=== PATIENT | male | born 1990 | race Caucasian/White ===

== ENCOUNTER 2016-04-22 18:57 | Observation (INO) | payer OTHER ==
[~2016-04-22] VITALS: Wt 82.0 kg
[2016-04-22] MEDS ORDERED: morphine 4 MG/ML VIAL IV STA (22:52)
[2016-04-22] MEDS ORDERED: SOD CHLORIDE 0.9% 1,000 ML IV STA (22:52)
[2016-04-22] MEDS ORDERED: ONDANSETRON 4 MG INJ IV STA (22:52)
[2016-04-22] MEDS ORDERED: FEXO1TAB25 PO (22:57)
[2016-04-22 23:19] LABS: BASOPHIL # 0.1 10^3/ul (0.0-0.1); BASOPHILS % 0.6 % (0.0-2.0); EOSINOPHILS # 0.1 10^3/ul (0.0-0.5); EOSINOPHILS % 0.9 % (0.0-7.0); HEMATOCRIT 44.1 % (42.0-52.0); HEMOGLOBIN 14.9 g/dl (14.0-18.0); LYMPHOCYTES # 3.8 10^3/ul (0.8-2.9); LYMPHOCYTES % 28.3 % (15.0-51.0); MEAN CORPUSCULAR HEMOGLOBIN 30.7 pg (29.0-33.0); MEAN CORPUSCULAR HGB CONC 33.7 g/dl (32.0-37.0); MEAN CORPUSCULAR VOLUME 90.9 fl (82.0-101.0); MEAN PLATELET VOLUME 8.5 fl (7.4-10.4); MONOCYTE # 1.1 10^3/ul (0.3-0.9); MONOCYTES % 7.8 % (0.0-11.0); NEUTROPHIL # 8.5 10^3/ul (1.6-7.5); NEUTROPHILS % 62.4 % (39.0-77.0); PLATELET COUNT 313 10^3/UL (140-440); RED BLOOD COUNT 4.85 10^6/ul (4.70-6.10); RED CELL DISTRIBUTION WIDTH 13.2 % (11.5-14.5); UNCORRECTED WBC 13.6 10^3/ul (4.8-10.8); WHITE BLOOD COUNT 13.6 10^3/ul (4.8-10.8)
[2016-04-22 23:20] LABS: CONDITION 1
[2016-04-22 23:27] LABS: ALBUMIN 4.8 g/dl (3.3-4.9)
[2016-04-22 23:28] LABS: POTASSIUM 3.7 mmol/L (3.5-5.1)
[2016-04-22 23:29] LABS: INR 0.96; PARTIAL THROMBOPLASTIN TIME 27.6 Sec (25.0-35.0); PROTIME 12.8 Sec (12.2-14.2)
[2016-04-22 23:30] LABS: ALBUMIN/GLOBULIN RATIO 1.33; CREATININE 0.95 mg/dl (0.61-1.24); TOTAL PROTEIN 8.4 g/dl (6.1-8.1)
[2016-04-22 23:31] LABS: CALCIUM 9.9 mg/dl (8.4-10.2)
[2016-04-22] MEDS ORDERED: SOD CHLORIDE 0.9% 100 ML ONE (23:42)
[2016-04-22] MEDS ORDERED: IOHEXOL 300MG/ML 150 ML BTL ONE (23:42)
[2016-04-23 00:27] LABS: ADD UMIC YES; URINE BILIRUBIN (Dip) 1+ (NEGATIVE); URINE BLOOD (Dip) TRACE (NEGATIVE); URINE COLOR LT. YELLOW (YELLOW); URINE GLUCOSE (Dip) NEGATIVE (NEGATIVE); URINE KETONES (Dip) 15 (NEGATIVE); URINE LEUKOCYTE ESTERASE (Dip) NEGATIVE (NEGATIVE); URINE NITRITE (Dip) NEGATIVE (NEGATIVE); URINE TOTAL PROTEIN (Dip) NEGATIVE (NEGATIVE); URINE UROBILINOGEN (Dip) 0.2 E.U./dL (0.1-1.0)
--- NOTE | 2016-04-23 01:01 | RADRPT ---
PROCEDURE: CT ABDOMEN/PELVIS WITH CONTRAST CLINICAL INDICATION: 25-year-old male with abdominal pain. TECHNIQUE: The study was performed utilizing a GE [employer] VCT 64-slice CT scanner. Direct axia l sections were obtained through the abdomen and pelvis with the use of 100 cc of Omnipaque-300 rainer onic intravenous contrast material. Sagittal and coronal reformations were obtained. Automated expos ure control and iterative reconstruction techniques were utilized for this examination. The images were reviewed on a PACS workstation. CTD/vol = 10.7 mGy; Total Exam DLP = 672.1 mGy-cm. COMPARISON: None. FINDINGS: The lung bases are unremarkable. There is no evidence for significant pleural effusion. The liver has a normal size and contour without focal areas of abnormal density or contrast enhancement. No in trahepatic nor extrahepatic biliary ductal dilatation is seen. The gallbladder demonstrates no wall thickening nor pericholecystic fluid. No biliary stones are evident. The pancreas is without areas o f abnormal attenuation or contrast enhancement. This spleen is identified and has a normal size wit hout abnormal density or contrast enhancement. The adrenal glands are unremarkable. The kidneys are functional bilaterally without abnormal density. No hydroureteronephrosis nor nephroureterolithiasis is evident. The urinary bladder contains a small volume of urine with a mildly thickened wall measu ring up to 8 mm. There is diffuse asymmetric thickening of the inferior right rectus muscle extendi ng from the mid to inferior aspect with mild surrounding inflammatory changes. There is mild retained stool identified within the ascending and transverse colon without obstruction. The append ix is visualized and is without edema or surrounding inflammatory reaction. There is no significant free fluid. The aortoiliac vessels are without aneurysmal dilatation. The osseous structures are in tact. IMPRESSION: 1. Retained stool without gross bowel obstruction. 2. No CT evidence for appendicitis. 3. Small volume bladder with mild thickened wall. 4. Diffusely asymmetric thickening right inferior rectus muscle with mild surrounding inflammatory changes which may represent a rectus muscle injury and mild hematoma. Other possibilities include in fectious process. Clinical correlation is necessary. .Esteban Shaw MD, Date Time Electronically viewed and signed by .Esteban Shaw MD, on 04/23/2016 01:00 .Atiya
[2016-04-23 01:02] LABS: ICTOTEST NEGATIVE (NEGATIVE)
[2016-04-23 01:03] LABS: MUCUS,URINE FEW; SQUAMOUS EPITHELIAL CELL,UR RARE; URINE RBCS 0-2 /HPF (0)
[2016-04-23] MEDS ORDERED: PIPER-TAZO 3.375 GM IV (PMX) 100 ML IVPB ONE (01:30)
--- NOTE | 2016-04-23 02:18 | ERA ---
ER Documentation Chief Complaint Date/Time DATE: 04/23/16 TIME: 02:16 Chief Complaint sent by [facility] r/o appendecitis rlq pain and feverx1 week HPI 25-year-old male who complains of right lower quadrant abdominal pain radiating to his right groin for the past week. He does have low-grade temperatures. Patient was seen in urgent care and referred for possible appendicitis. Pain is mild to moderate intensity. He is also been constipated for a week. No fevers no chills. No other current complaints. ROS All systems reviewed and are negative except as per history of present illness. Medications Home Meds Reported Medications Fexofenadine/Pseudoephedrine (Kristin-D 24 Hour Tablet) 1 Each Tab.er.24h, 1 EACH PO DAILY 04/22/16 Allergies Allergies: Coded Allergies: No Known Allergy (Unverified , 04/22/16) PMhx/Soc Medical and Surgical Hx: pt denies Surgical Hx History of Surgery: No Anesthesia Reaction: No Hx Neurological Disorder: No Hx Respiratory Disorders: Yes (PNA JUNE 2015) Hx Cardiac Disorders: No Hx Psychiatric Problems: No Hx Miscellaneous Medical Probl: No Hx Alcohol Use: Yes Hx Substance Use: Yes (MARIJUANA) Hx Tobacco Use: Yes Smoking Status: Current every day smoker Physical Exam Vitals Vital Signs Date Time Temp Pulse Resp B/P Pulse Ox O2 Delivery O2 Flow Rate FiO2 04/22/16 22:55 98.3 60 20 140/87 100 Room Air 04/22/16 19:23 98.2 81 20 126/84 98 Physical Exam Const: [] Head: Atraumatic Eyes: Normal Conjunctiva ENT: Normal External Ears, Nose and Mouth. Neck: Full range of motion..~ No meningismus. Resp: Clear to auscultation bilaterally Cardio: Regular rate and rhythm, no murmurs Abd: Soft, non tender, non distended. Normal bowel sounds Skin: No petechiae or rashes Back: No midline or flank tenderness Ext: No cyanosis, or edema Neur: Awake and alert Psych: Normal Mood and Affect Result Diagram: 04/22/16 2305 04/22/16 2305 Results 24 hrs Laboratory Tests Test 04/22/16 23:05 04/22/16 23:45 Activated Partial Thromboplast Time 27.6Sec Alanine Aminotransferase (ALT/SGPT) 29IU/L Albumin 4.8g/dl Albumin/Globulin Ratio 1.33 Alkaline Phosphatase 94IU/L Anion Gap 19 Aspartate Amino Transf (AST/SGOT) 53IU/L Basophils # 0.110^3/ul Basophils % 0.6% Blood Urea Nitrogen 12mg/dl Calcium Level 9.9mg/dl Carbon Dioxide Level 26mmol/L Chloride Level 99mmol/L Creatinine 0.95mg/dl Direct Bilirubin 0.00mg/dl Eosinophils # 0.110^3/ul Eosinophils % 0.9% Globulin 3.60g/dl Glucose Level 94mg/dl Hematocrit 44.1% Hemoglobin 14.9g/dl INR International Normalized Ratio 0.96 Indirect Bilirubin 1.0mg/dl Lipase 44U/L Lymphocytes # 3.810^3/ul Lymphocytes % 28.3% Mean Corpuscular Hemoglobin 30.7pg Mean Corpuscular Hemoglobin Concent 33.7g/dl Mean Corpuscular Volume 90.9fl Mean Platelet Volume 8.5fl Monocytes # 1.110^3/ul Monocytes % 7.8% Neutrophils # 8.510^3/ul Neutrophils % 62.4% Nucleated Red Blood Cells # 0.010^3/ul Nucleated Red Blood Cells % 0.0/100WBC Platelet Count 79110^3/UL Potassium Level 3.7mmol/L Prothrombin Time 12.8Sec Prothrombin Time Ratio 1.0 Red Blood Count 4.8510^6/ul Red Cell Distribution Width 13.2% Sodium Level 140mmol/L Total Bilirubin 1.0mg/dl Total Protein 8.4g/dl White Blood Count 13.610^3/ul Urine Bilirubin 1+ Urine Clarity CLEAR Urine Color LT. YELLOW Urine Glucose NEGATIVE% Urine Hemoglobin TRACE Urine Ictotest NEGATIVE Urine Ketones 15 Urine Leukocyte Esterase NEGATIVE Urine Microscopic RBC 0-2/HPF Urine Microscopic WBC NONE SEEN/HPF Urine Mucus FEW Urine Nitrite NEGATIVE Urine Specific [place] >=1.030 Urine Squamous Epithelial Cells RARE Urine Total Protein NEGATIVE Urine Urobilinogen 0.2 E.U./dL Urine pH 6.0 Current Medications Medications (Trade) Dose Ordered Sig/Abraham Route PRN Reason Start Time Stop Time Status Last Admin Dose Admin Sodium Chloride (NS) 1,000 ml @ 1,000 mls/hr Q1H STAT IV 04/22/16 22:52 04/22/16 23:51 DC 04/22/16 23:12 Morphine Sulfate (morphine) 4 mg ONCE STAT IV 04/22/16 22:52 04/22/16 22:54 DC 04/22/16 23:13 Ondansetron HCl 4 mg 4 mg ONCE STAT IV 04/22/16 22:52 04/22/16 22:54 DC 04/22/16 23:12 Sodium Chloride (NS) 100 ml @ ud STK-MED ONCE .ROUTE 04/22/16 23:42 04/22/16 23:43 DC 04/23/16 00:03 Iohexol 150 ml 150 ml STK-MED ONCE .ROUTE 04/22/16 23:42 04/22/16 23:43 DC 04/23/16 00:03 Piperacillin Sod/ Tazobactam Sod (Zosyn 3.375gm/ 100 ml (Pmx)) 100 ml @ 200 mls/hr ONCE ONCE IVPB 04/23/16 01:30 04/23/16 01:59 DC 04/23/16 01:19 Procedures/MDM CBC: Elevated white count CMP: [no e/o severe acidosis, alkalosis, renal failure, diabetic ketoacidosis, liver disease] Lipase: [no e/o pancreatitis] PT/INR: [normal coagulation] Urine: [no e/o acute infection or hematuria] CT shows rectus sheath hematoma Medical decision-making: Patient comes in with a 3 rectus sheath hematoma versus abscess. At this point he was on antibiotics empirically. Patient will be admitted to hospitalist. Departure Diagnosis: Primary Impression: Abdominal pain Qualified Code: R10.31 - Right lower quadrant abdominal pain Additional Impression: Rectus sheath hematoma Qualified Code: S30.1XXA - Rectus sheath hematoma, initial encounter Condition: Stable MARINA LIMONOri Apr 23, 2016 02:17
[2016-04-23 03:30] VITALS: PULSE 77; TEMP 97.8
[2016-04-23 04:51] VITALS: BP 124/74; RESP 20
[2016-04-23] MEDS ORDERED: ONDANSETRON 4 MG INJ IV PRN (06:00)
[2016-04-23] MEDS ORDERED: morphine 4 MG/ML VIAL IV PRN (06:00)
[2016-04-23] MEDS: metroNIDAZOLE 500 MG/NS (PMX) 100 ML IVPB SCH ×3 (06:51→22:03)
[2016-04-23 07:41] VITALS: BP 126/67; RESP 18
[2016-04-23] MEDS: CIPROFLOXACIN 400MG/D5W 200 ML IVPB SCH ×2 (08:58→22:03)
[2016-04-23 10:07] LABS: BASOPHILS % 0.3 % (0.0-2.0); EOSINOPHILS # 0.1 10^3/ul (0.0-0.5); EOSINOPHILS % 0.9 % (0.0-7.0); HEMATOCRIT 40.1 % (42.0-52.0); HEMOGLOBIN 13.6 g/dl (14.0-18.0); LYMPHOCYTES # 1.8 10^3/ul (0.8-2.9); LYMPHOCYTES % 22.4 % (15.0-51.0); MEAN CORPUSCULAR HEMOGLOBIN 31.1 pg (29.0-33.0); MEAN CORPUSCULAR VOLUME 91.5 fl (82.0-101.0); MEAN PLATELET VOLUME 8.3 fl (7.4-10.4); MONOCYTE # 0.6 10^3/ul (0.3-0.9); MONOCYTES % 7.9 % (0.0-11.0); NEUTROPHIL # 5.5 10^3/ul (1.6-7.5); NEUTROPHILS % 68.5 % (39.0-77.0); PLATELET COUNT 266 10^3/UL (140-440); RED BLOOD COUNT 4.38 10^6/ul (4.70-6.10); RED CELL DISTRIBUTION WIDTH 13.1 % (11.5-14.5); UNCORRECTED WBC 8.1 10^3/ul (4.8-10.8); WHITE BLOOD COUNT 8.1 10^3/ul (4.8-10.8)
[2016-04-23 10:16] LABS: CONDITION 1
[2016-04-23 10:21] LABS: BILIRUBIN,INDIRECT 0.8 mg/dl (0-1.1); BILIRUBIN,TOTAL 0.8 mg/dl (0.2-1.3); TOTAL PROTEIN 6.9 g/dl (6.1-8.1)
[2016-04-23 10:22] LABS: CALCIUM 9.1 mg/dl (8.4-10.2)
--- NOTE | 2016-04-23 11:22 | HP ---
DATE OF ADMISSION: 04/23/2016 CHIEF COMPLAINT: Abdominal pain. HISTORY OF PRESENT ILLNESS: The patient is a 25-year-old male with no significant past medical hist ory who presented to the emergency department with right-sided abdominal pain, mainly at the right l ower quadrant area. He denied any associated nausea, vomiting, constipation, or diarrhea. He also denied any fever, chills, chest pain or shortness of breath. When he presented to the ER, a CT abdo men and pelvis was done which showed thickening of the right inferior rectus muscle with inflammator y change, which could be a muscular injury or even possibly infectious etiology or a hematoma. He a lso presented with a white count of 13.3. Otherwise, the rest of his labs and vitals were in the no rmal range. The patient denied any trauma to the abdominal area. REVIEW OF SYSTEMS: A 12-point review of systems was performed and negative except as mentioned in H PI. PAST MEDICAL HISTORY: Denied. SOCIAL HISTORY: Denied a history of tobacco, alcohol or illicit drug use. ALLERGIES: NO KNOWN DRUG ALLERGIES. HOME MEDICATIONS: Pseudoephedrine PHYSICAL EXAMINATION: VITAL SIGNS: Stable. GENERAL: No acute distress, answering questions appropriately, cooperative. HEENT: Normocephalic, atraumatic. No scleral icterus. Pupils are reactive to light. CARDIOVASCULAR: Regular rate and rhythm with no extra sounds. LUNGS: Clear. ABDOMEN: Soft. There is some tenderness in the right lower quadrant area with no guarding, no rigi dity, no rebound tenderness. LABORATORIES: WBC 13.3. IMAGING: CT abdomen and pelvis with results as mentioned in the HPI. IMPRESSION: 1. Right lower quadrant abdominal pain, secondary to possibly some muscular injury or possible infe ctious etiology. PLAN: 1. Provide pain medication. 2. He will also be placed on antibiotics. Will check a blood culture. 3. We will obtain an MRI to further evaluate what was seen on the CT abdomen and pelvis. 4. For now, pain management and antibiotics will be the mainstay of treatment. Further workup and management per clinical course. Dictated By: MARINA PATTERSON/GAGE Conf#: [id number] DID#: [id number]
[2016-04-23] MEDS ORDERED: ACETAMINOPHEN 325 MG TAB PO PRN (12:00)
[2016-04-23 12:01] LABS: POTASSIUM 4.1 mmol/L (3.5-5.1)
[2016-04-23 12:02] LABS: ALBUMIN 4.1 g/dl (3.3-4.9); ALBUMIN/GLOBULIN RATIO 1.46
[2016-04-23] MEDS ORDERED: BISACODYL (EC) 5 MG TAB PO PRN (14:30)
[2016-04-23] MEDS ORDERED: HYDROCODONE/APAP (10/325) TAB PO PRN (14:30)
--- NOTE | 2016-04-23 15:19 | PN ---
Date/Time of Note Date/Time of Note DATE: 04/23/16 TIME: 15:16 Assessment/Plan VTE Prophylaxis VTE Prophylaxis Intervention: ambulation, contraindicated VTE Contraindication Reason: bleeding Lines/Catheters IV Catheter Type (from Nrsg): Saline Lock Assessment/Plan Chief Complaint/Hosp Course A/P 1) Abd wall hematoma/ rectus sheath tear; stable. mri; pain control/ binder; dc home 04/24 2) Constipation 3) Tobacco/ marijuana Problems: Subjective 24 Hr Interval Summary Free Text/Dictation less pain. no fever. snowboarding in [place] recently. also works, with motorbike repair; lots of lifting. Exam/Review of Systems Vital Signs Vitals Vital Signs Date Time Temp Pulse Resp B/P Pulse Ox O2 Delivery O2 Flow Rate FiO2 04/23/16 07:41 98.6 62 18 126/67 98 04/23/16 03:30 Room Air Intake and Output 04/22/16 04/22/16 04/23/16 15:00 23:00 07:00 Intake Total 0 ml Output Total 0 ml Balance 0 ml Exam Constitutional: alert Respiratory: clear to auscultation Cardiovascular: regular rate and rhythm Gastrointestinal: soft (mild tender; no r r g; no ecchymosis) Extremities: other (no edema) Results Result Diagram: 04/23/16 0940 04/23/16 0940 Results 24 hrs Laboratory Tests Test 04/22/16 23:05 04/22/16 23:45 04/23/16 09:40 Activated Partial Thromboplast Time 27.6 Alanine Aminotransferase (ALT/SGPT) 29 31 Albumin 4.8 4.1 Albumin/Globulin Ratio 1.33 1.46 Alkaline Phosphatase 94 69 Anion Gap 19 H 15 Aspartate Amino Transf (AST/SGOT) 53 H 38 Basophils # 0.1 0.0 Basophils % 0.6 0.3 Blood Urea Nitrogen 12 12 Calcium Level 9.9 9.1 Carbon Dioxide Level 26 28 Chloride Level 99 100 Creatinine 0.95 1.00 Direct Bilirubin 0.00 0.00 Eosinophils # 0.1 0.1 Eosinophils % 0.9 0.9 Globulin 3.60 H 2.80 Glucose Level 94 89 Hematocrit 44.1 40.1 L Hemoglobin 14.9 13.6 L INR International Normalized Ratio 0.96 Indirect Bilirubin 1.0 0.8 Lipase 44 Lymphocytes # 3.8 H 1.8 Lymphocytes % 28.3 22.4 Mean Corpuscular Hemoglobin 30.7 31.1 Mean Corpuscular Hemoglobin Concent 33.7 34.0 Mean Corpuscular Volume 90.9 91.5 Mean Platelet Volume 8.5 8.3 Monocytes # 1.1 H 0.6 Monocytes % 7.8 7.9 Neutrophils # 8.5 H 5.5 Neutrophils % 62.4 68.5 Nucleated Red Blood Cells # 0.0 0.0 Nucleated Red Blood Cells % 0.0 0.0 Platelet Count 313 266 Potassium Level 3.7 4.1 Prothrombin Time 12.8 Prothrombin Time Ratio 1.0 Red Blood Count 4.85 4.38 L Red Cell Distribution Width 13.2 13.1 Sodium Level 140 139 Total Bilirubin 1.0 0.8 Total Protein 8.4 H 6.9 # White Blood Count 13.6 H 8.1 # Urine Bilirubin 1+ H Urine Clarity CLEAR Urine Color LT. YELLOW Urine Glucose NEGATIVE Urine Hemoglobin TRACE Urine Ictotest NEGATIVE Urine Ketones 15 Urine Leukocyte Esterase NEGATIVE Urine Microscopic RBC 0-2 Urine Microscopic WBC NONE SEEN Urine Mucus FEW Urine Nitrite NEGATIVE Urine Specific [place] >=1.030 H Urine Squamous Epithelial Cells RARE Urine Total Protein NEGATIVE Urine Urobilinogen 0.2 E.U./dL Urine pH 6.0 Medications Medications Current Medications Morphine Sulfate (morphine) 3 mg Q4H PRN IV PAIN Last administered on 06:51; Admin Dose 3 MG; Start 04/23/16 at 06:00 Ondansetron HCl 4 mg 4 mg Q6H PRN IV NAUSEA AND/OR VOMITING; Start 04/23/16 at 06:00 Metronidazole 100 ml @ 100 mls/hr Q8 IVPB Last administered on 04/23/16 14:07 ; Admin Dose 100 MLS/HR; Start 04/23/16 at 06:00 Ciprofloxacin/ Dextrose (Cipro Ivpb) 200 ml @ 200 mls/hr Q12 IVPB Last administered on 04/23/16 08:58; Admin Dose 200 MLS/HR; Start 04/23/16 at 09:00 Influenza Virus Vaccine (Fluzone) 0.5 ml ONCE ONCE IM* ; Start 04/24/16 at 09:00 ; Stop 04/24/16 at 09:01 Acetaminophen (Tylenol Tab) 650 mg Q4H PRN PO PAIN AND OR ELEVATED TEMP Last administered on 04/23/16t 12:11; Admin Dose 650 MG; Start 04/23/16 at 12:00 Acetaminophen/ Hydrocodone Bitart ([place] (10)) 1 tab Q4H PRN PO PAIN; Start 04/23/16 at 14:30 Docusate Sodium (Colace) 100 mg BID PO ; Start 04/23/16 at 14:30 Hydrocortisone (Anusol-Hc Supp) 25 mg BID DC ; Start 04/23/16 at 16:00 Bisacodyl (Dulcolax) 10 mg DAILY PRN PO CONSTIPATION; Start 04/23/16 at 14:30 NARESH BALDERAS MD Apr 23, 2016 15:19
[2016-04-23] MEDS: DOCUSATE SODIUM 100 MG CAP PO SCH ×2 (15:54→22:03)
[2016-04-23] MEDS: HYDROCORTISONE 25 MG SUPP PR SCH ×2 (15:54→22:03)
[2016-04-23] MEDS: SOD CHLORIDE 0.9% 1,000 ML IV SCH ×2 (15:55→23:30)
[2016-04-23 19:21] VITALS: BP 126/73; RESP 16
[2016-04-24] MEDS: metroNIDAZOLE 500 MG/NS (PMX) 100 ML IVPB SCH ×2 (05:14→14:00)
[2016-04-24 06:41] LABS: ALBUMIN 3.9 g/dl (3.3-4.9)
[2016-04-24 06:42] LABS: BASOPHILS % 0.4 % (0.0-2.0); EOSINOPHILS # 0.1 10^3/ul (0.0-0.5); EOSINOPHILS % 0.8 % (0.0-7.0); HEMATOCRIT 39.5 % (42.0-52.0); HEMOGLOBIN 13.6 g/dl (14.0-18.0); LYMPHOCYTES # 2.2 10^3/ul (0.8-2.9); LYMPHOCYTES % 27.5 % (15.0-51.0); MEAN CORPUSCULAR HEMOGLOBIN 31.3 pg (29.0-33.0); MEAN CORPUSCULAR HGB CONC 34.5 g/dl (32.0-37.0); MEAN CORPUSCULAR VOLUME 90.8 fl (82.0-101.0); MEAN PLATELET VOLUME 8.4 fl (7.4-10.4); MONOCYTE # 0.8 10^3/ul (0.3-0.9); MONOCYTES % 9.8 % (0.0-11.0); NEUTROPHIL # 4.9 10^3/ul (1.6-7.5); NEUTROPHILS % 61.5 % (39.0-77.0); PLATELET COUNT 282 10^3/UL (140-440); POTASSIUM 4.3 mmol/L (3.5-5.1); RED BLOOD COUNT 4.35 10^6/ul (4.70-6.10); RED CELL DISTRIBUTION WIDTH 12.7 % (11.5-14.5); UNCORRECTED WBC 7.9 10^3/ul (4.8-10.8); WHITE BLOOD COUNT 7.9 10^3/ul (4.8-10.8)
[2016-04-24 06:44] LABS: CREATININE 0.95 mg/dl (0.61-1.24)
[2016-04-24 06:45] LABS: ALBUMIN/GLOBULIN RATIO 1.21; BILIRUBIN,INDIRECT 0.5 mg/dl (0-1.1); BILIRUBIN,TOTAL 0.5 mg/dl (0.2-1.3); CALCIUM 9.2 mg/dl (8.4-10.2); TOTAL PROTEIN 7.1 g/dl (6.1-8.1)
[2016-04-24 06:48] LABS: C-REACTIVE PROTEIN 3.1 mg/dl (0.0-0.9)
[2016-04-24 06:52] LABS: CONDITION 1
[2016-04-24] MEDS: SOD CHLORIDE 0.9% 1,000 ML IV SCH ×3 (07:30→15:30)
[2016-04-24 07:46] VITALS: BP 126/73; RESP 18
[2016-04-24] MEDS ORDERED: INFLUENZA VIRUS VACCINE 0.5 ML (DISPENSING) IM* ONE (09:00)
[2016-04-24] MEDS: HYDROCORTISONE 25 MG SUPP PR SCH (09:00)
[2016-04-24] MEDS: DOCUSATE SODIUM 100 MG CAP PO SCH (09:10)
[2016-04-24] MEDS: CIPROFLOXACIN 400MG/D5W 200 ML IVPB SCH (09:11)
[2016-04-24] MEDS ORDERED: ULT50 PO (11:57)
--- NOTE | 2016-04-24 12:02 | PDOCDIS ---
Discharge Instructions DIAGNOSIS Discharge Diagnosis: 1. Abdominal pain secondary to rectus muscle injury CONDITION Patient Condition: Stable HOME CARE INSTRUCTIONS: Special Diet: REGULAR ACTIVITY: Activity Restrictions: Slowly Increase Activity FOLLOW UP/APPOINTMENTS Appointments 1. Follow up with your primary care provider in one week. OTHER ORDERS: Other Orders: 1. Call your primary care provider if worsening abdominal pain. LADAN GABRIEL Apr 24, 2016 12:02
--- NOTE | 2016-04-24 12:14 | RADRPT ---
PROCEDURE: MR Abdomen. CLINICAL INDICATION: Abdominal pain. Suspected abdominal hematoma. Abnormal CT scan. TECHNIQUE: MRI abdomen without contrast was performed on the a high-resolution, high [facility] scanner. Patient was examined without IV contrast. Images were reviewed on a high[employer] PACS workstation. COMPARISON: CT scan dated 04/22/2016 FINDINGS: MRI Abdomen: The liver is normal in size and homogeneous in signal intensity. There is normal signal intensity w ithin the liver. No liver mass lesion or intrahepatic biliary dilatation is seen. The spleen is no rmal in size and homogeneous in signal intensity. The stomach is partially collapsed but grossly un remarkable. The gallbladder is unremarkable. The biliary tree is not dilated. No intrahepatic nor extrahepatic biliary dilatation is present. The pancreas, as visualized, is equally unremarkable. No pancreatic lesion is seen. The adrenal glands and kidneys are symmetrically normal. The aorta is of normal caliber. There is no retroperitoneal lymphadenopathy. The bowel and mesentery, as vis ualized, are all unremarkable. IMPRESSION: 1. Unremarkable MRI abdomen. 2. The rectus sheath hematoma is involving the lower inferior rectus sheath within the anterior pel laron wall. This is not visualized on this MRI abdomen study. A new MRI pelvis study has already bee n ordered and will be performed shortly in a STAT fashion and will be dictated separately. RPTAT: HMJB .Jn White MD, MD Date Time Electronically viewed and signed by .Jn White MD, MD on 04/24/2016 12:14 .B/
--- NOTE | 2016-04-24 14:53 | PN ---
Date/Time of Note Date/Time of Note DATE: 04/24/16 TIME: 14:51 Assessment/Plan VTE Prophylaxis VTE Prophylaxis Intervention: ambulation, SCD's Lines/Catheters IV Catheter Type (from Nrs): Peripheral IV Assessment/Plan Chief Complaint/Hosp Course Assessment and plan 1. Abdominal wall suspect hematoma versus rectus sheath tear. MRI of abdomen unremarkable. MRI of the pelvis is pending. Continue with analgesics as needed. 2. History of constipation. We'll provide with laxatives as needed Disposition and plan: Follow up on MRI of pelvis. Continue analgesics as needed. Further recommendations per clinical course Discussed plan of care with Dr. Johnson Problems: Subjective 24 Hr Interval Summary Free Text/Dictation No acute signs or symptoms of distress Exam/Review of Systems Vital Signs Vitals Vital Signs Date Time Temp Pulse Resp B/P Pulse Ox O2 Delivery O2 Flow Rate FiO2 04/24/16 07:46 98.2 57 18 126/73 98 04/23/16 03:30 Room Air Intake and Output 04/23/16 04/23/16 04/24/16 15:00 23:00 07:00 Intake Total 200 ml 1245 ml 1375 ml Balance 200 ml 1245 ml 1375 ml Exam General: No acute signs or symptoms of distress Eyes: pupils equal round, Anicteric sclera Neck: Supple nontender, no JVD Cardiac: S1, S2 auscultated, regular rhythm and rate Pulmonary: No coarse rhonchi or breathing auscultated GI: Minimal tenderness near pelvis area Extremities: No edema bilateral lower extremities Skin: Clean dry and intact Neurologic: Alert to person place and time and situation Results Result Diagram: 04/24/16 0600 04/24/16 0600 Results 24 hrs Laboratory Tests Test 04/24/16 06:00 Alanine Aminotransferase (ALT/SGPT) 30 Albumin 3.9 Albumin/Globulin Ratio 1.21 Alkaline Phosphatase 64 Anion Gap 15 Aspartate Amino Transf (AST/SGOT) 34 Basophils # 0.0 Basophils % 0.4 Blood Urea Nitrogen 10 C-Reactive Protein 3.1 H Calcium Level 9.2 Carbon Dioxide Level 26 Chloride Level 103 Creatinine 0.95 Direct Bilirubin 0.00 Eosinophils # 0.1 Eosinophils % 0.8 Erythrocyte Sedimentation Rate 4 Globulin 3.20 Glucose Level 91 Hematocrit 39.5 L Hemoglobin 13.6 L Indirect Bilirubin 0.5 Lymphocytes # 2.2 Lymphocytes % 27.5 Mean Corpuscular Hemoglobin 31.3 Mean Corpuscular Hemoglobin Concent 34.5 Mean Corpuscular Volume 90.8 Mean Platelet Volume 8.4 Monocytes # 0.8 Monocytes % 9.8 Neutrophils # 4.9 Neutrophils % 61.5 Nucleated Red Blood Cells # 0.0 Nucleated Red Blood Cells % 0.0 Platelet Count 282 Potassium Level 4.3 Red Blood Count 4.35 L Red Cell Distribution Width 12.7 Sodium Level 140 Total Bilirubin 0.5 Total Protein 7.1 White Blood Count 7.9 Medications Medications Current Medications Morphine Sulfate (morphine) 3 mg Q4H PRN IV PAIN Last administered on 06:51; Admin Dose 3 MG; Start 04/23/16 at 06:00 Ondansetron HCl 4 mg 4 mg Q6H PRN IV NAUSEA AND/OR VOMITING; Start 04/23/16 at 06:00 Metronidazole 100 ml @ 100 mls/hr Q8 IVPB Last administered on 04/24/16 05:14 ; Admin Dose 100 MLS/HR; Start 04/23/16 at 06:00 Ciprofloxacin/ Dextrose (Cipro Ivpb) 200 ml @ 200 mls/hr Q12 IVPB Last administered on 04/24/16 09:11; Admin Dose 200 MLS/HR; Start 04/23/16 at 09:00 Acetaminophen (Tylenol Tab) 650 mg Q4H PRN PO PAIN AND OR ELEVATED TEMP Last administered on 04/23/16 12:11; Admin Dose 650 MG; Start 04/23/16 at 12:00 Acetaminophen/ Hydrocodone Bitart ([place] (10/325)) 1 tab Q4H PRN PO PAIN; Start 04/23/16 at 14:30 Docusate Sodium (Colace) 100 mg BID PO Last administered on 04/24/16 09:10; Admin Dose 100 MG; Start 04/23/16 at 14:30 Hydrocortisone (Anusol-Hc Supp) 25 mg BID [place] Last administered on 04/23/16 22: 03; Admin Dose 25 MG; Start 04/23/16 at 16:00 Bisacodyl 10 mg 10 mg DAILY PRN PO CONSTIPATION Last administered on 04/23/16 15:54; Admin Dose 10 MG; Start 04/23/16 at 14:30 Sodium Chloride (NS) 1,000 ml @ 125 mls/hr Q8H IV Last administered on t 15:55; Admin Dose 125 MLS/HR; Start 04/23/16 at 15:30 LADAN GABRIEL Apr 24, 2016 14:53
--- NOTE | 2016-04-24 17:36 | RADRPT ---
PROCEDURE: MR Pelvis without contrast. CLINICAL INDICATION: Rectus sheath hematoma. Pain. Follow-up. TECHNIQUE: MRI of the pelvis was performed on the [facility] high field MRI scanner. The patient was sc anned without IV contrast. Images were reviewed on a high-resolution PACS workstation. COMPARISON: CT scan pelvis dated 04/22/2016 FINDINGS: Infiltration and edema of the right anterior lower rectus sheath is identified. No contrast was adm inistered. Findings are consistent with a rectus sheath hematoma which appears stable when compared to the prior study. Underlying neoplasm is considered unlikely. No administration of contrast was given to assess for underlying neoplasm although this is considered unlikely. Follow-up is advised . The left rectus sheath is unremarkable. The remaining pelvic organs and pelvic structures are no rmal. The osseous structures are normal. IMPRESSION: 1. Stable appearances of a presumed rectus sheath hematoma in the right lower inferior pelvic rectu s sheath. This is unchanged since the previous CT scan and presumably benign, and simple follow-up over time is recommended to ensure resolution. RPTAT: HMJB .Jn White MD, Date Time Electronically viewed and signed by .Jn White MD, on 04/24/2016 17:36 .B/
== END 2016-04-24 19:40 | disposition home or self-care (01) ==
LOC: E/R 18:57 → MS2 04-23 01:48
PROVIDERS: ADMIT Internal Medicine; ATTEND Internal Medicine
DX: S30.1XXA Contusion of abdominal wall, initial encounter (principal); K59.00 Constipation, unspecified; Z72.0 Tobacco use; Z87.01 Personal history of pneumonia (recurrent); Z23 Encounter for immunization; X58.XXXA Exposure to other specified factors, initial encounter
CPT/HCPCS: 36415; 72195; 74177; 74181; 80053; 81001; 81003; 83690; 85025; 85610; 85651; 85730; 86140; 90686; 96374; 96375; 99285; G0378; J0744; J2270; J2405; J2543; J7030; Q9967

== ENCOUNTER 2018-09-06 17:56 | Emergency (ER) | payer SELFPAY ==
[~2018-09-06] VITALS: Ht 175.3 cm; Wt 82.9 kg
[~2018-09-06 17:56] MED LIST: FEXO1TAB PO; TRAM50TA2 PO
[2018-09-06 17:59] VITALS: Ht 175.3 cm; Wt 82.9 kg
[2018-09-06] MEDS ORDERED: CYCL10TA7 PO (18:55)
[2018-09-06] MEDS ORDERED: IBUP800T48 PO (18:55)
--- NOTE | 2018-09-06 18:58 | ERD ---
ER Documentation Chief Complaint Chief Complaint rt shoulder pain x 5 days HPI 28-year-old male [id number] is here with right shoulder pain for the past 6 days. He thinks he may have tweaked intermittent back causing the pain but no direct trauma or fall or injury. He is been taking Tylenol and Motrin which does help temporarily. No numbness or tingling or loss of range of motion. ROS All systems reviewed and are negative except as per history of present illness. Medications Home Meds Active Scripts Ibuprofen* (Motrin*) 800 Mg Tab, 800 MG PO Q6, #30 TAB Prov:MARGRET ULLOA PA-C 09/06/18 Cyclobenzaprine Hcl* (Cyclobenzaprine Hcl*) 10 Mg Tablet, 10 MG PO BID, #15 TAB Prov:MARGRET ULLOA PA-C 09/06/18 Tramadol HCl (Tramadol HCl) 50 Mg Tablet, 50 MG PO Q6H PRN for PAIN, #30 TAB Prov:LADAN GABRIEL [employer] 04/24/16 Reported Medications Fexofenadine/Pseudoephedrine (Kristin-D 24 Hour Tablet) 1 Each Tab.er.24h, 1 EACH PO DAILY 04/22/16 Allergies Allergies: Coded Allergies: No Known Allergy (Unverified , 04/22/16) PMhx/Soc History of Surgery: No Anesthesia Reaction: No Hx Neurological Disorder: No Hx Respiratory Disorders: No Hx Cardiac Disorders: No Hx Psychiatric Problems: No Hx Alcohol Use: No Hx Substance Use: No Hx Tobacco Use: Yes Smoking Status: Never smoker FmHx Family History: No diabetes Physical Exam Vitals Vital Signs Date Temp Pulse Resp B/P (MAP) Pulse Ox O2 O2 Flow FiO2 Time Delivery Rate 09/06/18 98.2 74 18 127/71 99 17:59 (89) Physical Exam Const: No acute distress Head: Atraumatic Eyes: Normal Conjunctiva ENT: Normal External Ears, Nose and Mouth. Neck: Full range of motion. No meningismus. Resp: Clear to auscultation bilaterally Cardio: Regular rate and rhythm, no murmurs Upper Extremity - bilateral: Skin: [No laceration, or evidence of external trauma] Compartments: [Soft] Motor: [Full active range of motion shoulder/elbow/ Bones: [Nontender humerus/elbow Snuffbox: [Nontender] Joints: [No effusion] Pulses/Perfusion: [2+ radial, Capillary refill < 2 seconds] Procedures/MDM Patient has shoulder pain. Neurovascular intact. X-rays negative. He declined any pain medication here but he was discharged with ibuprofen and Flexeril. Patient counseled regarding my diagnostic impression and care plan. Prior to discharge all questions answered. Pt agrees with treatment plan and understands strict return precautions. Pt is instructed to follow up with primary care provider within 24-48 hours. Precautionary instructions provided including instructions to return to the ER if not improving or for any worsening or changing symptoms or concerns. Departure Diagnosis: Primary Impression: Shoulder pain Condition: Stable Patient Instructions: Shoulder Pain (Uncertain Cause) Additional Instructions: Call your primary care doctor TOMORROW for an appointment during the next 1-2 days.See the doctor sooner or return here if your condition worsens before your appointment time. MARGRET ULLOA PA-C Sep 06, 2018 18:58
[2018-09-06 19:20] VITALS: BP 131/75; PULSE 60; RESP 18
== END 2018-09-06 19:21 | disposition home or self-care (01) ==
LOC: FTE 17:56
DX: M25.511 Pain in right shoulder (principal)